=== PATIENT | male | born 1950 | race Caucasian/White ===

== ENCOUNTER 2020-05-10 11:58 | Emergency (ER) | payer OTHER, MEDICAID ==
[~2020-05-10] VITALS: Ht 170.2 cm; Wt 48.5 kg
[2020-05-10 12:09] VITALS: BP_SYST 124
[2020-05-10] MEDS ORDERED: MECLIZINE HCL 25 MG TABLET (ANITVERT) PO ONE (13:15)
[2020-05-10 13:39] LABS: BASOPHILS # (AUTO) 0.1 K/uL (0.0-0.2); EOSINOPHILS # (AUTO) 0.1 K/uL (0.0-0.4); EOSINOPHILS % (AUTO) 1.9 % (0.0-4.0); HEMATOCRIT 47.1 % (36-54); HEMOGLOBIN 15.5 g/dL (14.0-18.0); LYMPHOCYTES # (AUTO) 1.4 K/uL (1.0-5.5); LYMPHOCYTES % (AUTO) 26.1 % (20.5-51.5); MEAN CORPUSCULAR HEMOGLOBIN 30 pg (27-31); MEAN CORPUSCULAR HGB CONC 33 % (32-36); MEAN CORPUSCULAR VOLUME 91 fL (79.0-98.0); MONOCYTES # (AUTO) 0.4 K/uL (0.0-1.0); NEUTROPHILS # (AUTO) 3.3 K/uL (1.8-7.7); PLATELET COUNT (AUTO) 219 K/uL (130-430); RED BLOOD CELL COUNT(AUTO) 5.18 MIL/uL (4.2-6.2); WHITE BLOOD COUNT (AUTO) 5.3 K/uL (4.8-10.8)
[2020-05-10 13:54] LABS: CALCIUM 9.3 mg/dL (8.4-11.0); CREATININE 1.06 mg/dL (0.55-1.30); POTASSIUM 4.4 mmol/L (3.5-5.1)
[2020-05-10 13:57] LABS: PROTHROMBIN TIME 10.1 SECS (9.5-12.5)
[2020-05-10 13:59] LABS: ALBUMIN 3.8 g/dL (3.4-4.8); TOTAL BILIRUBIN 0.3 mg/dL (0.0-1.0)
[2020-05-10 14:34] LABS: BILIRUBIN,URINE NEGATIVE (NEGATIVE); BLOOD, URINE NEGATIVE (NEGATIVE); CLARITY/URINE CLEAR (CLEAR); COLOR,URINE YELLOW (YELLOW); GLUCOSE,URINE NEGATIVE (NEGATIVE); KETONES,URINE NEGATIVE (NEGATIVE); LEUKOCYTE ESTERASE ,URINE NEGATIVE (NEGATIVE); NITRITE, URINE NEGATIVE (NEGATIVE); PROTEIN URINE NEGATIVE (NEGATIVE); UROBILINOGEN,URINE 0.2 (0.2-1.0)
[2020-05-10] MEDS ORDERED: MECL-160 PO (16:05)
[2020-05-10 18:10] VITALS: BP_SYST 125
== END 2020-05-10 18:10 | disposition home or self-care (01) ==
LOC: SED 11:58
DX: R42 Dizziness and giddiness (principal); Z88.1 Allergy status to other antibiotic agents; Z91.040 Latex allergy status; Z91.018 Allergy to other foods
CPT/HCPCS: 36415; 70450; 76376; 80053; 81003; 84484; 85025; 85610; 85730; 93005; 99285; J8597

== ENCOUNTER 2020-10-07 15:36 | Inpatient (IN) | payer OTHER, MEDICAID, SELFPAY ==
[~2020-10-07] VITALS: Ht 170.2 cm; Wt 77.6 kg
[~2020-10-07 15:36] MED LIST: MECL-160 PO
[2020-10-07 15:46] VITALS: BP_SYST 114
--- NOTE | 2020-10-07 15:50 | NUR ---
ADRIANNA EMT FROM HOME FOR RLE CELLULITIS, STARTED SUNDAY AFTER BANGING HIS KNEE
[2020-10-07] MEDS ORDERED: NACL 0.9% 1,000 ML IV ONE (16:00)
--- NOTE | 2020-10-07 16:05 | NUR ---
DR SALCIDO IN TO ASSESS
--- NOTE | 2020-10-07 16:19 | NUR ---
IV HL. LABS SENT, X-RAY COMPLETED, IV HYDRATION
[2020-10-07] MEDS ORDERED: FLUC200T PO (16:32)
[2020-10-07] MEDS ORDERED: CLOT30CR37 TP (16:32)
[2020-10-07 16:35] LABS: BASOPHILS % (AUTO) 0.4 % (0.0-2.0); EOSINOPHILS # (AUTO) 0.1 K/uL (0.0-0.4); EOSINOPHILS % (AUTO) 0.7 % (0.0-4.0); HEMATOCRIT 43.4 % (36-54); HEMOGLOBIN 14.6 g/dL (14.0-18.0); LYMPHOCYTES # (AUTO) 1.1 K/uL (1.0-5.5); LYMPHOCYTES % (AUTO) 10.1 % (20.5-51.5); MEAN CORPUSCULAR HEMOGLOBIN 31 pg (27-31); MEAN CORPUSCULAR HGB CONC 34 % (32-36); MEAN CORPUSCULAR VOLUME 91 fL (79.0-98.0); MONOCYTES # (AUTO) 1.2 K/uL (0.0-1.0); MONOCYTES % (AUTO) 10.5 % (1.7-9.3); NEUTROPHILS # (AUTO) 8.8 K/uL (1.8-7.7); NEUTROPHILS % (AUTO) 78.3 % (40.0-70.0); PLATELET COUNT (AUTO) 209 K/uL (130-430); RED BLOOD CELL COUNT(AUTO) 4.76 MIL/uL (4.2-6.2); RED CELL DISTRIBUTION WIDTH 13.8 % (9.0-15.0); WHITE BLOOD COUNT (AUTO) 11.3 K/uL (4.8-10.8)
[2020-10-07 17:12] LABS: POTASSIUM 3.8 mmol/L (3.5-5.1)
[2020-10-07 17:13] LABS: CALCIUM 8.7 mg/dL (8.4-11.0); CREATININE 1.14 mg/dL (0.55-1.30); TOTAL BILIRUBIN 0.4 mg/dL (0.0-1.0)
[2020-10-07 17:14] LABS: ALBUMIN 3.1 g/dL (3.4-4.8); URIC ACID 4.5 mg/dL (2.4-7.0)
[2020-10-07] MEDS ORDERED: PIPERACILLIN/TAZO 3.375 GM in NS 50 ML IV ONE (17:30)
[2020-10-07 17:31] LABS: C-REACTIVE PROTEIN QUANT 16.8 mg/dL (0-0.5)
[2020-10-07] MEDS ORDERED: XALEYE OP (17:54)
[2020-10-07] MEDS ORDERED: VITD2000 PO (17:54)
[2020-10-07] MEDS ORDERED: PROP20SO PO (17:54)
[2020-10-07] MEDS ORDERED: ASCO500T20 PO (17:54)
[2020-10-07] MEDS ORDERED: FINA5TAB3 PO (17:54)
[2020-10-07] MEDS ORDERED: DICL35CA2 (17:54)
[2020-10-07] MEDS ORDERED: LIP10 PO (17:54)
[2020-10-07] MEDS ORDERED: PRO40 PO (17:54)
[2020-10-07 18:06] LABS: ERYTHROCYTE SEDIMENTATION RATE 26 MM/HR (0-15)
[2020-10-07] MEDS ORDERED: PIPERACILLIN/TAZOBACTAM 3.375 GM/VIAL (ZOSYN) IV ONE ×2 (18:10→23:12)
--- NOTE | 2020-10-07 19:04 | NUR ---
CALM, ALERT, MEAL PROVIDED, TOLERATING PO WELL.
--- NOTE | 2020-10-07 20:00 | NUR ---
Emptied bedside urinal x 2 with combined 500 cc of clear yellow urine, well tolerated
--- NOTE | 2020-10-07 21:00 | NUR ---
VSS no s/s of acute distress Resting on gurney rails up
--- NOTE | 2020-10-07 22:02 | NUR ---
Pt remains stable, pt verbalized, " feeling a bit better "
--- NOTE | 2020-10-07 22:38 | NUR ---
Patient will be admitted to care of Dr. Brian. Admitted to Med Surg unit. Will go to room 100A. Belongings list completed. Complete and up to date summary report printed. SBAR report to be given at bedside with opportunity for questions.
[2020-10-07 22:43] VITALS: BP_SYST 133
--- NOTE | 2020-10-07 22:43 | NUR ---
ADMISSION: The patient, MORTEZA BANUELOS, 70 y/o, M admitted by SABINA COMER MD, was given information regarding hospital policies, unit procedures and contact persons. Valuables were checked and documented.
--- NOTE | 2020-10-07 23:06 | NUR ---
CONSULT REASON FOR CONSULT: CELLULITIS PERSON I SPOKE WITH: RICHARDSON CONSULTING PHYSICIAN: Bekah CLARK EDUCATIONAL PSYCHOLOGIST PHONE NUMBER: [phone] ORDERING PHYSICIAN: DR. COMER
[2020-10-07] MEDS: PIPERACILLIN/TAZO 3.375 GM in NS 50 ML IV SCH (23:19)
[2020-10-08] VITALS: BP_SYST 133
[2020-10-08] MEDS: PIPERACILLIN/TAZO 3.375 GM in NS 50 ML IV SCH ×3 (05:20→22:06)
--- NOTE | 2020-10-08 06:50 | NUR ---
Closing note Pt is lying in bed. no s/s of acute distress. breathing is even and non labored. IV site is intact and patent with fluids running at ordered rate. All needs met throughout shift. Fall and safety precautions in place. will continue to monitor until endorsed to day shift
[2020-10-08 07:02] LABS: BASOPHILS % (AUTO) 0.2 % (0.0-2.0); EOSINOPHILS % (AUTO) 0.3 % (0.0-4.0); HEMATOCRIT 41.1 % (36-54); HEMOGLOBIN 13.8 g/dL (14.0-18.0); LYMPHOCYTES % (AUTO) 10.6 % (20.5-51.5); MEAN CORPUSCULAR HEMOGLOBIN 31 pg (27-31); MEAN CORPUSCULAR HGB CONC 34 % (32-36); MEAN CORPUSCULAR VOLUME 91 fL (79.0-98.0); MONOCYTES # (AUTO) 1.1 K/uL (0.0-1.0); NEUTROPHILS # (AUTO) 7.7 K/uL (1.8-7.7); NEUTROPHILS % (AUTO) 77.9 % (40.0-70.0); PLATELET COUNT (AUTO) 200 K/uL (130-430); RED BLOOD CELL COUNT(AUTO) 4.52 MIL/uL (4.2-6.2); RED CELL DISTRIBUTION WIDTH 13.7 % (9.0-15.0); WHITE BLOOD COUNT (AUTO) 9.9 K/uL (4.8-10.8)
[2020-10-08 07:44] LABS: CALCIUM 8.6 mg/dL (8.4-11.0); CREATININE 1.02 mg/dL (0.55-1.30); POTASSIUM 4.1 mmol/L (3.5-5.1)
[2020-10-08 07:58] LABS: ALBUMIN 2.8 g/dL (3.4-4.8); THYROID STIMULATING HORMONE 0.44 uIu/mL (0.36-3.74); TOTAL BILIRUBIN 0.6 mg/dL (0.0-1.0)
[2020-10-08] MEDS: LINEZOLID 300 ML IV SCH ×2 (08:43→20:55)
--- NOTE | 2020-10-08 08:44 | NUR ---
Scheduled IV abx given per order. Patient stable at this time.
[2020-10-08 08:45] VITALS: BP_SYST 122
--- NOTE | 2020-10-08 09:39 | NUR ---
Nutrition Update Shukri Scale 15 noted. Pt admitted for cellulitis R leg. Diet: 2 gm Na BMI: 26.8 kg/m2 RD to follow per nutrition care standards.
[2020-10-08 11:24] VITALS: BP_SYST 125
--- NOTE | 2020-10-08 13:12 | NUR ---
Scheduled IV abx given per order. Patient resting quietly in bed with no complaint of pain or discomfort. Patient stable.
--- NOTE | 2020-10-08 14:20 | NUR ---
Patient resting quietly in bed with no distress noted. Patient stable.
[2020-10-08 15:30] VITALS: BP_SYST 109
--- NOTE | 2020-10-08 16:40 | NUR ---
Patient stable; talking on phone with sister, Amie.
--- NOTE | 2020-10-08 18:45 | NUR ---
Patient resting comfortably in bed with no distress noted. Patient stable throughout shift.
[2020-10-09 01:04] VITALS: BP_SYST 109
[2020-10-09] MEDS: PIPERACILLIN/TAZO 3.375 GM in NS 50 ML IV SCH ×3 (06:40→21:22)
[2020-10-09 08:00] VITALS: BP_SYST 125
--- NOTE | 2020-10-09 08:00 | NUR ---
awake eating breakfast. looks confuse , followed simple commands. with garbled speech. no respiratory distress no pain as claimed. noted right knee swollen and inflamed.will monitor.
[2020-10-09] MEDS: LINEZOLID 300 ML IV SCH (09:00)
[2020-10-09 11:29] VITALS: BP_SYST 121
--- NOTE | 2020-10-09 11:30 | NUR ---
went to bathroom limping, no fever noted.
[2020-10-09 15:29] VITALS: BP_SYST 139
--- NOTE | 2020-10-09 19:35 | NUR ---
ROUNDS PATIENT RESTING COMFORTABLY IN BED, NOT IN DISTRESS, VITALS STALE. ASSESSMENT DONE AND DOCUMENTED. SEE FLOWSHEET. NEEDS ATTENDED TO. SAFETY MEASURES IN PLACED. CALL LIGHT PLACED WITHIN REACH.
[2020-10-09 20:00] VITALS: BP_SYST 128
[2020-10-10] VITALS: BP_SYST 119
--- NOTE | 2020-10-10 00:15 | NUR ---
PATIENT RESTING: Patient resting quietly. No acute distress noted. Vital signs within normal range.
--- NOTE | 2020-10-10 06:55 | NUR ---
CLOSING NOTES PATIENT AWAKE, NO COMPLAINTS AT THIS TIME, VITALS STABLE. ALL NEEDS ATTENDED TO. SAFETY MEASURES MAINTAINED. CALL LIGHT PLACED WITHIN REACH.
[2020-10-10 08:15] VITALS: BP_SYST 104
--- NOTE | 2020-10-10 08:15 | NUR ---
AM ROUNDS: AWAKE DURING ROUNDS,LYING ON THE BED. ALERT AND ORIENTED X4. IV TO TKO,INTACT. CALL LIGHT WITH IN REACH. BED LOCKED AT LOWEST POSITION.
[2020-10-10] MEDS: LINEZOLID 300 ML IV SCH ×2 (09:31→20:41)
[2020-10-10] MEDS: cefTRIAXone 1 GM in D5W 50 ML IV SCH (09:31)
[2020-10-10] MEDS: EMOLLIENT COMBINATION NO.73 78 GM CREAM..G. TP SCH ×2 (12:10→20:49)
[2020-10-10 12:11] VITALS: BP_SYST 122
[2020-10-10 16:05] VITALS: BP_SYST 116
--- NOTE | 2020-10-10 18:30 | NUR ---
CLOSING NOTES: PATIENT HAVING DINNER. IV TO TKO. NOT IN ANY DISTRESS. SAFETY MEASURES RENDERED.
[2020-10-11 00:18] VITALS: BP_SYST 131
[2020-10-11 08:00] VITALS: BP_SYST 123
[2020-10-11] MEDS: EMOLLIENT COMBINATION NO.73 78 GM CREAM..G. TP SCH ×2 (09:05→21:52)
[2020-10-11] MEDS: LINEZOLID 300 ML IV SCH ×2 (09:06→20:06)
[2020-10-11] MEDS: cefTRIAXone 1 GM in D5W 50 ML IV SCH (11:02)
[2020-10-11 12:00] VITALS: BP_SYST 137
--- NOTE | 2020-10-11 14:04 | NUR ---
Note Pt sat up in bed to eat his meals - no needs noted all shift. Pt was assisted OOB to restroom with FWW and standby assist. Pt unsteady in gait - walking with FWW and WOOD HEEL FLAP INSERTER standby. Call light within reach.
[2020-10-11 16:01] VITALS: BP_SYST 124
--- NOTE | 2020-10-11 18:08 | NUR ---
NOTE Pt sitting up in bed eating his dinner. Pt was checked on q1' and PRN all shift for needs and care. Pt's bed in low position and bed alarm on. Pt's IV in right hand intact and patent. No needs noted at this time. Call light within reach. Pt was informed that his sister Amie called at [phone] and she would call back at [phone]. Call light within reach all shift.
[2020-10-11 19:00] VITALS: BP_SYST 133
--- NOTE | 2020-10-11 19:15 | NUR ---
change of shift.pt.presents quiescent affect;calm,resting.pt.presents cellulitis rt.lower extremity cutaneous surface intact.pt.presents iv access location:rt.wrist/forearm intact.iv lock status.general status stable.respiratory status stable;unlabored@room air.call light/urinal w/in access of the pt.
--- NOTE | 2020-10-11 19:30 | NUR ---
Opening note Received report from day nurse. Pt resting in bed with HOB elevation, no facial grimacing or discomfort noted. Alert x4 on bedrest. On room air, no respiratory distress, non labored breathing. IV patent and intact, no complications noted. All needs provided, bed linen changed and skin care provided. Bed to lowest/locked/alarmed. On fall/aspiration precaution.
[2020-10-11 20:00] VITALS: BP_SYST 133
--- NOTE | 2020-10-11 20:00 | NUR ---
note Sister Amie called, wanted to know if pt was sleeping and wanted to speak to him. Told Amie we can arrange a time to call back due to nurse no available to help at the time. Amie agrees and states if pt is sleeping, she will call back in the morning.
--- NOTE | 2020-10-11 20:00 | NUR ---
pt.assessed.v/s assessed values wnl.no c/o pain,nausea.i apprised the pt.that snacks/beverages are available w/in the shift. no requests posited@this hour.general status stable.respiratory status stabel;unlabored.call light/urinal w/in access of the pt.
--- NOTE | 2020-10-11 20:30 | NUR ---
note Spoke to pt regarding sister wanting to speak with him, pt states not now, he will speak to her in the morning.
--- NOTE | 2020-10-11 21:00 | NUR ---
2100p medication administered zyvox abx ivpb.via peripheral access location rt.wrist.iv access intact flushed w/out resistance.
--- NOTE | 2020-10-11 22:00 | NUR ---
pt.assessed.pt.presents quiescent affect;calm,resting.no c/o pain,nausea.no requests posited@this hour.pt.capable to reposition self.call light/urinal w/in access of the pt.
--- NOTE | 2020-10-12 | NUR ---
pt.assessed.v/s assessed values wnl.no c/o pain,nausea.no requests posited@this hour.pt.capable to reposition self.call light/ urinal w/in access of the pt.
[2020-10-12 00:31] VITALS: BP_SYST 143
--- NOTE | 2020-10-12 02:00 | NUR ---
pt.assessed.pt.presents quiescent affect;calm,somnolent per flacc pain mgx pt.absent facial grimaces/body posturing.pt.capable to reposition self.call light/urinal w/in access of the pt.
--- NOTE | 2020-10-12 04:00 | NUR ---
pt.assessed.pt.presents quiescent affect;calm,somnolent.per flacc pain mgx pt.absent facial grimaces/body posturing. pt.capable reposition self.call light/urinal w/in access of the pt.
--- NOTE | 2020-10-12 06:28 | NUR ---
pt.assessed.pt.presents quiescent affect calm,resting.no c/o pain,nausea.pt.provide w wash basin to wash self.call light placed w/in access of the pt.
--- NOTE | 2020-10-12 06:35 | NUR ---
Closing note Pt resting in bed with HOB elevation, no facial grimacing or discomfort noted. Alert x4 on bedrest. On room air, no respiratory distress, non labored breathing at this time. IV patent and intact, no complications noted. All needs provided, bed linen changed and skin care provided. Bed to lowest/locked/alarmed. On fall/aspiration precaution.
[2020-10-12 08:00] VITALS: BP_SYST 114
[2020-10-12] MEDS: LINEZOLID 300 ML IV SCH ×2 (08:13→20:32)
[2020-10-12] MEDS: EMOLLIENT COMBINATION NO.73 78 GM CREAM..G. TP SCH ×2 (08:15→20:32)
[2020-10-12] MEDS: cefTRIAXone 1 GM in D5W 50 ML IV SCH (10:30)
[2020-10-12 11:42] VITALS: BP_SYST 128
--- NOTE | 2020-10-12 12:52 | NUR ---
Dietitian Recommendations *Continue 2gm Na diet. Please see Nutritional Assessment for details. CARE [facility], RD
--- NOTE | 2020-10-12 13:00 | NUR ---
Note Pt was assisted out of bed to restroom with FWW and UTILIZATION SUPERVISOR at side. Pt stable and denies any needs at this time. Call light within reach.
--- NOTE | 2020-10-12 14:05 | NUR ---
Note Called pt's sister Amie at pt's request. Waiting for call back.
[2020-10-12] MEDS ORDERED: MECLIZINE HCL 25 MG TABLET (ANITVERT) PO PRN (14:15)
[2020-10-12] MEDS ORDERED: LEVO750T45 PO (14:34)
[2020-10-12] MEDS ORDERED: METR500T PO (14:34)
[2020-10-12] MEDS: PROPRANOLOL HCL 10 MG TABLET (INDERAL) PO SCH ×2 (14:59→20:45)
[2020-10-12] MEDS ORDERED: ASCORBIC ACID 500 MG TABLET PO ONE (15:00)
[2020-10-12] MEDS ORDERED: FINASTERIDE 5 MG TABLET (PROSCAR) PO ONE (15:00)
[2020-10-12] MEDS ORDERED: CHOLECALCIFEROL (VITAMIN D3) 2,000 UNIT TABLET PO ONE (15:00)
[2020-10-12] MEDS ORDERED: PANTOPRAZOLE SODIUM 40 MG TAB PO ONE (15:00)
[2020-10-12 15:24] VITALS: BP_SYST 124
--- NOTE | 2020-10-12 15:50 | NUR ---
Note Pt was seen and assessed by Ju Canseco (PUBLIC RELATIONS DIRECTOR - Dr Brian). Medication reconciliation was completed. Call light within reach.
--- NOTE | 2020-10-12 15:56 | NUR ---
DC PLANNING Order to dc back to . Pt from [facility], faxed referral to [facility]. Received call from Cassidy at [facility], accepted pt back to station 3, room # will be given to nurse when call in report. Set up transportation with [employer] for earliest avail 8pm. ms for pt's nurse. packet to [facility] station. 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 Discussed with charge nurse & plan to dc if cleared by Dr Keith ID consult. Nurse will discuss with Dr Keith if clear for discharge, if not cleared will hold dc. Informed pt & agreeable to dc today if clear or stay if not cleared by ID.
[2020-10-12 16:34] VITALS: BP_SYST 121
--- NOTE | 2020-10-12 18:15 | NUR ---
Note Pt sitting up in bed eating his dinner. Pt was checked on q1' and PRN all shift for needs and care. Pt's bed in low position and bed alarm on all shift. Pt was maintained with safety precautions all shift. Call light within reach. Have not heard from Dr Wayne this shift or seen MD doing rounds.
--- NOTE | 2020-10-12 18:41 | NUR ---
DR QUARLES S/W WHO STATED THAT PT IS CLEARED TO GO BACK TO SNF AND HAS DISCUSSED PLAN OF CARE WITH DR COMER. PT IS TO CONTINUE ON ROCEPHIN 1GM IVPB Q 24 HOURS FOR 7 MORE DAYS AND PO ZYVOX 600MG Q 12 H FOR 7 MORE DAYS
--- NOTE | 2020-10-12 19:30 | NUR ---
OPENING NOTE PATIENT IS AWAKE ALERT ORIENTED X3 BREATHING ROOM AIR NO SIGNS OF RESPIRATORY DISTRESS OR PAIN. IV SITE SECURED PATENT INTACT RFA. BED IS LOW AND CALL LIGHTS WITHIN REACH.
[2020-10-12] MEDS ORDERED: ATORVASTATIN 10 MG TABLET PO SCH (21:00)
--- NOTE | 2020-10-12 21:49 | NUR ---
D/C Patient Patient given medication reconciliation form and D/C instructions. Exit Care provided. Patient verbalized understanding. discussed with patient the results and treatment provided. Total care transferred via [facility]. Patient in stable condition, ID band removed. IV catheter secured per request of admitting facility for antibiotics. Rx of given. Patient educated on pain management. All belongings sent with patient.
[2020-10-13] MEDS ORDERED: PANTOPRAZOLE SODIUM 40 MG TAB PO SCH (09:00)
[2020-10-13] MEDS ORDERED: ASCORBIC ACID 500 MG TABLET PO SCH (09:00)
[2020-10-13] MEDS ORDERED: FINASTERIDE 5 MG TABLET (PROSCAR) PO SCH (09:00)
[2020-10-13] MEDS ORDERED: CHOLECALCIFEROL (VITAMIN D3) 2,000 UNIT TABLET PO SCH (09:00)
[2020-10-13] MEDS ORDERED: LATANOPROST 2.5 ML DROPS (XALATAN) OP SCH (21:00)
== END 2020-10-12 22:00 | DRG 602 ==
LOC: SED 15:36 → SMU 17:35
PROVIDERS: ADMIT Internal Medicine; ATTEND Internal Medicine
DX: L03.115 Cellulitis of right lower limb (principal); E43 Unspecified severe protein-calorie malnutrition; R65.10 Systemic inflammatory response syndrome (SIRS) of non-infectious origin without acute organ dysfunction; L30.9 Dermatitis, unspecified; F29 Unspecified psychosis not due to a substance or known physiological condition; Z20.822 Contact with and (suspected) exposure to COVID-19; Z88.8 Allergy status to other drugs, medicaments and biological substances; Z91.040 Latex allergy status; Z79.899 Other long term (current) drug therapy; Z68.26 Body mass index [BMI] 26.0-26.9, adult
CPT/HCPCS: 36415; 73560-TC; 80053; 80061; 83605; 83880; 84443; 84550; 85025; 85379; 85651-TC; 86140; 87040-TC; 87081; 96374; 97116-GP; 99285; J0696; J2020; J2543; J7060